=== PATIENT | female | born 1955 | race Caucasian/White ===

== ENCOUNTER 2020-09-17 19:36 | Emergency (ER) | payer MEDICARE, BC ==
[2020-09-17] MEDS ORDERED: Acetaminophen 500 MG Tab PO ONE (19:47)
--- NOTE | 2020-09-17 20:28 | EDM.PDOC ---
ED HPI GENERAL MEDICAL PROBLEM - General Chief Complaint: General Stated Complaint: FELL HIT HEAD Time Seen by Provider: 09/17/20 19:40 Source of Information: Reports: Patient History Limitations: Reports: No Limitations - History of Present Illness INITIAL COMMENTS - FREE TEXT/NARRATIVE: Patient comes in the emergency department with complaints of a hematoma to the right forehead after a fall. 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 She denies loss of consciousness or any injury. She states that she does have a bump on her forehead and a small cut behind her right ear. She wanted to be checked out due to the significant amount of bump to her head. She states that she does have a slight headache forming with it however she is not nauseated, dizzy, lightheaded, blurred vision, double vision, numbness or tingling and can move all extremities. Patient states that she is never had a concussion before never has been lost consciousness. Patient does not have any blood thinners on board either. Patient states she is relatively healthy has no other major concerns or complaints. Onset: Sudden Duration: Other Location: Reports: Head Quality: Reports: Ache, Throbbing Severity: Mild Improves with: Reports: Rest Worsens with: Reports: Movement Context: Reports: Trauma Associated Symptoms: Reports: No Other Symptoms Treatments [employer]ER: Reports: Cold Therapy Right Forehead Pain Score (Numeric/FACES): 5 - Related Data Allergies Allergy/AdvReac Type Severity Reaction Status Date / Time No Known Allergies Allergy Verified 12/28/19 11:27 Home Meds: Home Meds Acetaminophen [Tylenol] 325 mg PO QID PRN 12/21/19 [History] Albuterol Sulfate [Albuterol Sulfate Hfa] 108 mcg IH ASDIRECTED PRN 12/21/19 [History] Calcium Carbonate/Vitamin D3 [Calcium Carbonate/Vitamin D 600 MG-200 Unit] 1 tab PO BID 12/21/19 [History] Cyanocobalamin (Vitamin B-12) [B-12 Dots] 500 mcg PO Q48H 12/21/19 [History] Ergocalciferol (Vitamin D2) [Drisdol] 50,000 unit PO WEEKLY 12/21/19 [History] Ferrous Gluconate 324 mg PO Q48H 12/21/19 [History] Hydrocodone/Acetaminophen [Hydrocodone-Acetamin 5-325 mg] 1 each PO Q4HR PRN 12/21/19 [History] Magnesium Gluconate 0.5 gm PO DAILY 12/21/19 [History] Multivitamin 1 each PO DAILY 12/21/19 [History] Omeprazole 20 mg PO DAILY 12/21/19 [History] Tolterodine Tartrate [Detrol LA] 4 mg PO DAILY 12/21/19 [History] oxyCODONE 5 mg PO Q4HR PRN 12/21/19 [History] Past Medical History Gastrointestinal History: Reports: GI Bleed - Past Surgical History GI Surgical History: Reports: Bariatric Procedure Musculoskeletal Surgical History: Reports: Carpal Tunnel, Shoulder Surgery Social & Family History - Caffeine Use Caffeine Use: Reports: Coffee Caffeine Use Comment: 2cups/day ED ROS GENERAL - Review of Systems Review Of Systems: Comprehensive ROS is negative, except as noted in HPI. Constitutional: Reports: No Symptoms HEENT: Reports: No Symptoms Respiratory: Reports: No Symptoms Cardiovascular: Reports: No Symptoms Endocrine: Reports: No Symptoms GI/Abdominal: Reports: No Symptoms : Reports: No Symptoms Musculoskeletal: Reports: No Symptoms Neurological: Reports: No Symptoms Psychiatric: Reports: No Symptoms Hematologic/Lymphatic: Reports: No Symptoms Immunologic: Reports: No Symptoms ED EXAM, GENERAL - Physical Exam Exam: See Below Exam Limited By: No Limitations General Appearance: Alert, WD/WN, No Apparent Distress Eye Exam: Bilateral Eye: EOMI, PERRL Ears: Normal External Exam, Normal Canal, Hearing Grossly Normal Ear Exam: Bilateral Ear: Auricle Normal, Canal Normal, TM normal Nose: Normal Inspection, Normal Mucosa, No Blood Throat/Mouth: Normal Inspection, Normal Lips Head: Atraumatic, Normocephalic Neck: Normal Inspection, Supple, Non-Tender, Full Range of Motion Respiratory/Chest: No Respiratory Distress, Lungs Clear, Normal Breath Sounds, No Accessory Muscle Use, Chest Non-Tender Cardiovascular: Normal Peripheral Pulses, Regular Rate, Rhythm, No Edema GI/Abdominal: Normal Bowel Sounds, Soft, Non-Tender, No Abnormal Bruit Back Exam: Normal Inspection, Full Range of Motion Extremities: Normal Inspection, Normal Range of Motion, Non-Tender, Normal Capillary Refill Neurological: Alert, Oriented, CN II-XII Intact, Normal Cognition, Normal Gait Psychiatric: Normal Affect, Normal Mood Skin Exam: Warm, Dry, Intact, Normal Color Course - Vital Signs Last Recorded V/S: Last Vital Signs Temp 36.7 C 09/17/20 19:54 Pulse 73 09/17/20 19:54 Resp 18 09/17/20 19:54 BP 145/70 H 09/17/20 19:54 Pulse Ox 96 09/17/20 19:54 - Orders/Labs/Meds Meds: Medications Discontinued Medications Generic Name Dose Route Start Last Admin Trade Name Kellee PRN Reason Stop Dose Admin Acetaminophen 1,000 mg 09/17/20 19:47 09/17/20 19:50 Acetaminophen 500 Mg Tab PO 09/17/20 19:48 1,000 mg ONETIME ONE Administration Departure - Departure Time of Disposition: 20:30 Disposition: Home, Self-Care 01 Condition: Good Clinical Impression: Hematoma Concussion Qualifiers: Encounter type: initial encounter Loss of consciousness presence/duration: without LOC Qualified Code(s): S06.0X0A - Concussion without loss of consciousness, initial encounter Fall Qualifiers: Encounter type: initial encounter Qualified Code(s): W19.XXXA - Unspecified fall, initial encounter - Discharge Information *PRESCRIPTION DRUG MONITORING PROGRAM REVIEWED*: Not Applicable *COPY OF PRESCRIPTION DRUG MONITORING REPORT IN PATIENT MURIEL: Not Applicable Instructions: Head Injury, Adult, [id number], Concussion, Adult Forms: ED Department Discharge Additional Instructions: 1. Rest 2. Can use tylenol and ibuprofen as needed for pain and discomfort 3. Diet as tolerated 4. Activity as tolerated 5. Elevated the injured area above the level of the heart to decrease swelling and discomfort. 6. Use ice 3-4 times a day at 20-minute intervals to help with any swelling and discomfort 7. Follow-up with your primary care provider symptoms continue or to progress 8. Follow with any questions or concerns 9. Discharge information has been provided regarding your injury Sepsis Event Note (ED) - Evaluation Sepsis Screening Result: No Definite Risk - Focused Exam Vital Signs: Vital Signs Temp Pulse Resp BP Pulse Ox 09/17/20 19:54 36.7 C 73 18 145/70 H 96 - Assessment/Plan Assessment:: 1. hematoma 2. fall 3. mild concussion Plan: 1. Rest 2. Can use tylenol and ibuprofen as needed for pain and discomfort 3. Diet as tolerated 4. Activity as tolerated 5. Elevated the injured area above the level of the heart to decrease swelling and discomfort. 6. Use ice 3-4 times a day at 20-minute intervals to help with any swelling and discomfort 7. Follow-up with your primary care provider symptoms continue or to progress 8. Follow with any questions or concerns 9. Discharge information has been provided regarding your injury
== END 2020-09-17 20:55 | disposition home or self-care (01) ==
LOC: VM.ED 19:36
DX: S06.0X0A Concussion without loss of consciousness, initial encounter (principal); S00.83XA Contusion of other part of head, initial encounter; W01.198A Fall on same level from slipping, tripping and stumbling with subsequent striking against other object, initial encounter
CPT/HCPCS: 99283; 99284; A9270

== ENCOUNTER 2022-06-26 14:36 | Emergency (ER) | payer MEDICARE, BC ==
[2022-06-26] MEDS: Ibuprofen 200 MG Tab PO ONE (15:24)
== END 2022-06-26 15:50 | disposition home or self-care (01) ==
LOC: VM.ED 14:36 → SUPCPDRO 14:36 → VM.ED 15:50
DX: S63.502A Unspecified sprain of left wrist, initial encounter (principal); W00.0XXA Fall on same level due to ice and snow, initial encounter
CPT/HCPCS: 73110-LT; 99283; A9270-GY

== ENCOUNTER → 2022-06-28 | Day surgery (SDC) | payer MEDICARE, BC ==
[~2022-06-28] MED LIST: Lactated Ringers 1,000 ML IV SCH; Propofol 200 MG/20 ML SDV ONE; Sodium Chloride 0.9% 10 ML Syringe FLUSH PRN; fentaNYL 100 MCG/2 ML SDV ONE
== END ==
LOC: VM.SDS 07:50
PROVIDERS: ATTEND Student in an Organized Health Care Education/Training Program
DX: Z12.11 Encounter for screening for malignant neoplasm of colon (principal); D12.0 Benign neoplasm of cecum; D12.3 Benign neoplasm of transverse colon; I10 Essential (primary) hypertension; I05.9 Rheumatic mitral valve disease, unspecified; E66.9 Obesity, unspecified; M85.88 Other specified disorders of bone density and structure, other site; Z98.84 Bariatric surgery status; Z90.49 Acquired absence of other specified parts of digestive tract; Z79.899 Other long term (current) drug therapy; Z87.891 Personal history of nicotine dependence; Z68.32 Body mass index [BMI] 32.0-32.9, adult
CPT/HCPCS: 00812; 88305; J2704; J3010; J7120

== ENCOUNTER 2024-08-04 09:37 | Emergency (ER) | payer MEDICARE, BC ==
[2024-08-04 10:04] LABS: BILIRUBIN,URINE NEGATIVE (NEGATIVE); COLOR,URINE YELLOW (YELLOW); GLUCOSE,URINE NEGATIVE (NEGATIVE); KETONES,URINE 15 mg/dL (NEGATIVE); LEUKOCYTE ESTERASE,URINE SMALL (NEGATIVE); NITRITE,URINE NEGATIVE (NEGATIVE); OCCULT BLOOD,URINE TRACE-INTACT (NEGATIVE); PROTEIN,URINE NEGATIVE (NEGATIVE); UROBILINOGEN,URINE 0.2 EU/dL (0.2)
[2024-08-04 10:12] LABS: APPEARANCE,URINE SLIGHTLY CLOUDY (CLEAR)
[2024-08-04 10:16] LABS: BACTERIA,URINE NOT SEEN /HPF (NOT SEEN); MUCUS,URINE NOT SEEN /LPF (NOT SEEN); RBC,URINE 0-5 /HPF (NOT SEEN); SQUAMOUS EPITHELIAL CELLS,UR OCCASIONAL /HPF (NOT SEEN); WBC,URINE 0-5 /HPF (NOT SEEN)
[2024-08-04] MEDS: Cyclobenzaprine 10 MG Tab PO ONE (10:34)
[2024-08-04] MEDS: Acetaminophen/HYDROcodone 325-5 MG Tab PO ONE (10:34)
[2024-08-04] MEDS: Triamcinolone Acetonide 40 MG/ML 1 ML SDV IM ONE (11:13)
== END 2024-08-04 11:28 | disposition home or self-care (01) ==
LOC: VM.ED 09:37 → SUPCPDRO 09:37 → VM.ED 11:28
DX: M54.42 Lumbago with sciatica, left side (principal); Z79.899 Other long term (current) drug therapy
CPT/HCPCS: 72131; 81001; 87086; 96372; 99283; 99284; A9270-GY; J3301

== ENCOUNTER 2024-11-15 11:46 | Emergency (ER) | payer MEDICARE, BC | END 2024-11-15 13:31 | disposition home or self-care (01) | LOC: VM.ED 11:46 | DX: S82.831A Other fracture of upper and lower end of right fibula, initial encounter for closed fracture (principal); Z79.899 Other long term (current) drug therapy; Z79.51 Long term (current) use of inhaled steroids; X50.0XXA Overexertion from strenuous movement or load, initial encounter; Y93.89 Activity, other specified | CPT/HCPCS: 73610-RT; 96374; 99283; 99284-25; J1171 ==